=== PATIENT | female | born 1940 | race Caucasian/White ===

== ENCOUNTER 2023-03-16 09:06 | Outpatient (CLI) | payer OTHER ==
[~2023-03-16 09:06] MED LIST: LOTRIMIN AF12 GM TP; MEDROLPACK PO; XOPENEX0.63 MG/3 IH
== END 2023-03-16 10:02 | disposition home or self-care (01) ==
LOC: TOM 09:06
PROVIDERS: ATTEND Internal Medicine Gastroenterology
DX: R19.5 Other fecal abnormalities (principal); R54 Age-related physical debility

== ENCOUNTER 2023-03-17 09:34 | Outpatient (CLI) | payer OTHER | END 2023-03-17 09:48 | disposition home or self-care (01) | LOC: TOM 09:34 | PROVIDERS: ATTEND Internal Medicine Gastroenterology | DX: R19.5 Other fecal abnormalities (principal); R54 Age-related physical debility ==

== ENCOUNTER 2023-04-10 17:24 | Inpatient (IN) | payer OTHER ==
[~2023-04-10] VITALS: Ht 152.4 cm; Wt 42.6 kg
[2023-04-13] MEDS ORDERED: ST. JOSEPH ASPI81 M2 (08:46)
[2023-04-13] MEDS ORDERED: AMLODIPINE BESY10 MG (08:46)
[2023-04-13] MEDS ORDERED: OMEPRAZOLE20 MG (08:46)
[2023-04-13] MEDS ORDERED: BREO ELLIPTA I1 EACH (08:46)
[2023-04-13] MEDS ORDERED: HYDROCHLOROTHIA25 MG (08:46)
[2023-04-13] MEDS ORDERED: DOXAZOSIN MESYLA4 MG (08:46)
[2023-04-13] MEDS ORDERED: KETOROLAC TROMET5 ML (08:46)
[2023-04-13] MEDS ORDERED: MONTELUKAST SOD10 MG (08:46)
[2023-04-13] MEDS ORDERED: SIMVASTATIN20 MG (08:46)
[2023-04-13] MEDS ORDERED: REFRESH RELIEVA10 ML (08:46)
[2023-04-13] MEDS ORDERED: VALSARTAN320 MG (08:46)
[2023-04-13] MEDS ORDERED: LOSARTAN POTAS100 MG (08:47)
[2023-04-13] MEDS ORDERED: DONEPEZIL HCL5 MG (08:47)
== END 2023-04-18 13:29 | disposition home or self-care (01) | DRG 374 ==
LOC: ER 17:24 → EDBD 17:31 → SURH 20:36 → MEDJ 20:36 → SURH 04-11 15:30
PROVIDERS: ADMIT Surgery; ATTEND Surgery
PROC: BW21ZZZ Computerized Tomography (CT Scan) of Abdomen and Pelvis (ICD-10-PCS; 2023-04-10)
PROC: 30243N1 Transfusion of Nonautologous Red Blood Cells into Central Vein, Percutaneous Approach (ICD-10-PCS; 2023-04-11)
PROC: BW24ZZZ Computerized Tomography (CT Scan) of Chest and Abdomen (ICD-10-PCS; 2023-04-11)
PROC: B24BYZZ Ultrasonography of Heart with Aorta using Other Contrast (ICD-10-PCS; 2023-04-11)
PROC: 3E0F7GC Introduction of Other Therapeutic Substance into Respiratory Tract, Via Natural or Artificial Opening (ICD-10-PCS; 2023-04-12)
PROC: 02HV33Z Insertion of Infusion Device into Superior Vena Cava, Percutaneous Approach (ICD-10-PCS; 2023-04-13)
PROC: 0DJD8ZZ Inspection of Lower Intestinal Tract, Via Natural or Artificial Opening Endoscopic (ICD-10-PCS; principal; 2023-04-16)
DX: C19 Malignant neoplasm of rectosigmoid junction (principal); J69.0 Pneumonitis due to inhalation of food and vomit; J96.90 Respiratory failure, unspecified, unspecified whether with hypoxia or hypercapnia; J84.9 Interstitial pulmonary disease, unspecified; J90 Pleural effusion, not elsewhere classified; J98.11 Atelectasis; J93.9 Pneumothorax, unspecified; K57.90 Diverticulosis of intestine, part unspecified, without perforation or abscess without bleeding; D64.9 Anemia, unspecified; K80.20 Calculus of gallbladder without cholecystitis without obstruction; R63.0 Anorexia; J98.01 Acute bronchospasm; I10 Essential (primary) hypertension; E11.9 Type 2 diabetes mellitus without complications; Z79.4 Long term (current) use of insulin

== ENCOUNTER → 2023-04-22 | Emergency (ER) | payer OTHER ==
[~2023-04-22] VITALS: Ht 152.4 cm; Wt 40.8 kg
[~2023-04-22] MED LIST changes: +AMLODIPINE BESY10 MG; +BREO ELLIPTA I1 EACH; +DONEPEZIL HCL5 MG; +DOXAZOSIN MESYLA4 MG; +GLIPIZIDE5 MG PO; +HYDROCHLOROTHIA25 MG; +KETOROLAC TROMET5 ML; +LEVOTHYROXINE25 MCG; +LOSARTAN POTAS100 MG; +LOSARTAN POTASS50 MG PO; +MONTELUKAST SOD10 MG; +OMEPRAZOLE20 MG; +REFRESH RELIEVA10 ML; +SIMVASTATIN20 MG; +ST. JOSEPH ASPI81 M2; +VALSARTAN320 MG
== END | disposition home or self-care (01) ==
LOC: ER 21:42
DX: K62.5 Hemorrhage of anus and rectum (principal); E86.0 Dehydration; Z20.822 Contact with and (suspected) exposure to COVID-19

== ENCOUNTER 2023-05-08 09:28 | Inpatient (IN) | payer OTHER ==
[~2023-05-08] VITALS: Ht 152.4 cm; Wt 42.6 kg
[2023-05-13] MEDS ORDERED: AMLODIPINE BESY10 MG (15:54)
[2023-05-13] MEDS ORDERED: DOXAZOSIN MESYLA4 MG (15:54)
[2023-05-13] MEDS ORDERED: BREO ELLIPTA I1 EACH (15:54)
[2023-05-13] MEDS ORDERED: MONTELUKAST SOD10 MG (15:55)
[2023-05-13] MEDS ORDERED: SIMVASTATIN20 MG (15:55)
[2023-05-13] MEDS ORDERED: OMEPRAZOLE20 MG (15:55)
[2023-05-13] MEDS ORDERED: HYDROCHLOROTHIA25 MG (15:55)
[2023-05-13] MEDS ORDERED: VALSARTAN320 MG (15:55)
== END 2023-06-21 11:34 | disposition expired | DRG 480 ==
LOC: ER 09:28 → MEDI 19:30 → SURH 19:30
PROVIDERS: Orthopaedic Surgery; ADMIT Specialist; ATTEND Specialist
PROC: B54DZZZ Ultrasonography of Bilateral Lower Extremity Veins (ICD-10-PCS; 2023-05-08)
PROC: 30233N1 Transfusion of Nonautologous Red Blood Cells into Peripheral Vein, Percutaneous Approach (ICD-10-PCS; 2023-05-09)
PROC: 02HV33Z Insertion of Infusion Device into Superior Vena Cava, Percutaneous Approach (ICD-10-PCS; 2023-05-11)
PROC: 0QS636Z Reposition Right Upper Femur with Intramedullary Internal Fixation Device, Percutaneous Approach (ICD-10-PCS; principal; 2023-05-12 21:30)
PROC: 30243N1 Transfusion of Nonautologous Red Blood Cells into Central Vein, Percutaneous Approach (ICD-10-PCS; 2023-05-21)
PROC: B34KZZZ Ultrasonography of Bilateral Upper Extremity Arteries (ICD-10-PCS; 2023-05-21)
PROC: XW043E5 Introduction of Remdesivir Anti-infective into Central Vein, Percutaneous Approach, New Technology Group 5 (ICD-10-PCS; 2023-05-26)
PROC: 4A12X4Z Monitoring of Cardiac Electrical Activity, External Approach (ICD-10-PCS; 2023-05-27)
PROC: BQ2R1ZZ Computerized Tomography (CT Scan) of Right Lower Extremity using Low Osmolar Contrast (ICD-10-PCS; 2023-06-06)
PROC: 8E0ZXY6 Isolation (ICD-10-PCS; 2023-06-07)
PROC: 5A2204Z Restoration of Cardiac Rhythm, Single (ICD-10-PCS; 2023-06-08)
PROC: 0J9L30Z Drainage of Right Upper Leg Subcutaneous Tissue and Fascia with Drainage Device, Percutaneous Approach (ICD-10-PCS; 2023-06-11)
PROC: B24BYZZ Ultrasonography of Heart with Aorta using Other Contrast (ICD-10-PCS; 2023-06-11)
PROC: BQ2R1ZZ Computerized Tomography (CT Scan) of Right Lower Extremity using Low Osmolar Contrast (ICD-10-PCS; 2023-06-18)
DX: M80.051A Age-related osteoporosis with current pathological fracture, right femur, initial encounter for fracture (principal); U07.1 COVID-19; C19 Malignant neoplasm of rectosigmoid junction; K92.1 Melena; T81.49XA Infection following a procedure, other surgical site, initial encounter; N39.0 Urinary tract infection, site not specified; Z16.12 Extended spectrum beta lactamase (ESBL) resistance; I47.1 Supraventricular tachycardia; B96.20 Unspecified Escherichia coli [E. coli] as the cause of diseases classified elsewhere; M16.11 Unilateral primary osteoarthritis, right hip; D50.0 Iron deficiency anemia secondary to blood loss (chronic); Z66 Do not resuscitate; B96.5 Pseudomonas (aeruginosa) (mallei) (pseudomallei) as the cause of diseases classified elsewhere; F43.20 Adjustment disorder, unspecified; E86.0 Dehydration; E11.65 Type 2 diabetes mellitus with hyperglycemia; I10 Essential (primary) hypertension; E03.9 Hypothyroidism, unspecified; J84.10 Pulmonary fibrosis, unspecified; I48.91 Unspecified atrial fibrillation; I95.89 Other hypotension; Z63.8 Other specified problems related to primary support group; Z79.84 Long term (current) use of oral hypoglycemic drugs